=== PATIENT | male | born 1975 | race Caucasian/White ===

== ENCOUNTER 2023-06-25 09:54 | Outpatient (OUT) | payer OTHER, SELFPAY ==
--- NOTE | 2023-06-25 10:07 | XR_ITS ---
The [address] [address] Patient Name: SHAYNA BOYLE MRN: [id number] date: 1975 Sex: M Assigned Patient Location: [facility] Current Patient Location: [facility] Accession/Order Number: [id number] Exam Date: 06/25/2023 10:05 Report Date: 06/26/2023 22:02 At the request of: JIM OLIVARES Procedure: XR foot RT min 3V EXAM: XR foot RT min 3V HISTORY: Right Foot Pain M79.671 COMPARISON: None. TECHNIQUE: AP, oblique, lateral x-ray right foot. FINDINGS: Normal mineralization. No fracture or healing fracture or focal bone lesion. Mild degenerative changes metatarsophalangeal joint great toe with minor spurring, no significant joint space narrowing. Remaining joints unremarkable. XR/XR foot RT min 3V IMPRESSION: Negative for fracture or acute bony abnormality. Mild degenerative spurring metatarsophalangeal joint great toe. Electronically authenticated by: MIMI ZAVALA Date: 06/26/2023 22:02
== END 2023-06-25 09:55 | disposition home or self-care (01) ==
PROVIDERS: Family Provider Family Medicine; PCP Family Medicine; Visit Provider Family Medicine
DX: M79.671 Pain in right foot (principal)
CPT/HCPCS: 73630